=== PATIENT | female | born 1975 | race Asian ===

== ENCOUNTER 2016-11-08 23:23 | Inpatient (IN) | payer OTHER ==
[~2016-11-08] VITALS: Ht 152.4 cm; Wt 77.6 kg
[2016-11-08] MEDS ORDERED: Lactated Ringer's 1,000 ML IV PRN (23:52)
[2016-11-08] MEDS ORDERED: Oxytocin 30 Units/500 mL LR 30 UNITS in IV Premix 1 EACH IV PRN (23:55)
[2016-11-08] MEDS ORDERED: Oxytocin 10 Unit/mL Inj IM PRN (23:55)
[2016-11-08] MEDS ORDERED: Methylergonovine 0.2 mg/mL Inj IM PRN (23:55)
[2016-11-08] MEDS ORDERED: Hemorrhage Kit, Post Partum XX ONE (23:55)
[2016-11-08] MEDS ORDERED: Sodium Chloride LOK Flush 10 mL Syringe IVFLUSH PRN (23:55)
[2016-11-08] MEDS ORDERED: Carboprost 250 mCg/mL Inj IM PRN (23:55)
[2016-11-09] MEDS ORDERED: Atropine 1 mg/10 mL (Code) Syringe IVPUSH PRN
[2016-11-09] MEDS ORDERED: Lactated Ringer's 500 ML IV ONE
[2016-11-09] MEDS ORDERED: EPHEDrine Sulfate 50 mg/mL Inj IVPUSH PRN
[2016-11-09] MEDS ORDERED: Ondansetron 2 mg/mL 2 mL Inj IVPUSH PRN
[2016-11-09] MEDS ORDERED: fentaNYL 2 mCg/mL-Bupiv 0.125% 100 ML EPIDURAL SCH
--- NOTE | 2016-11-09 00:02 | PCM.HPANE ---
Patient Data Surgeon Admitting Provider:Diana Serrato MD Attending Provider:Diana Serrato MD Primary Care Physician:Vivian Manriquez MD Other Provider:Kd Ayala Anesthesia Reason for Visit Term Labor Ht/WT & BMI Body Mass Index Allergies Coded Allergies: No Known Allergies (Unverified , 11/09/16) Past Anesthesia History Anesthesia History: Denies:: Abnormal Airway, Anesthesia Reactions, Difficult Intubation, Fam Anesthesia Reaction, Fam Malignant Hypertherm, Malignant Hyperthermia Medications Active Scripts Ascorbate Calcium (Vitamin C)500 Mg [id number] Mg PO DAILY #90 TABLET Prov:LaureanoKellee L DO 11/10/16 Ferrous Sulfate 325 Mg [id number] Mg PO DAILY #90 TABLET Prov:Kellee Tinsley DO 11/10/16 Docusate Sodium (Colace)100 Mg [id number] Mg PO BID PRN For Constipation #60 CAPSULE Prov:Kellee Tinsley DO 11/10/16 Ibuprofen 800 Mg [id number] Mg PO TID PRN For Pain #60 TABLET Prov:Mercedes Tinsleyssmikki Duran DO 11/10/16 History History of ENT Problems?: No HEENT History: Denies:: Abnormal Airway Cataracts Difficult Intubation Dysphagia Glaucoma Hearing Problem Sinus Problem TMJ Denture Type: None Teeth Condition: Within Normal Limits Hx of Heart Problems?: No Cardiovascular History: Denies:: AICD Abdominal Aortic Aneurism Atrial Fibrillation Cardiac Surgery Chest Pain Congestive Heart Failure Coronary Artery Disease Edema Heart Murmur Hypertension Irregular Heartbeat Pacemaker Peripheral Vascular Rheumatic Fever Thrombophlebitis Valvular Heart Disease Hx of Respiratory Problem?: No Respiratory History: Denies:: Asthma COPD Chest Surgery Cough Dyspnea Emphysema Hemoptysis Oxygen Administration Pneumonia Pulmonary Embolism Tuberculosis Use of C-PAP Machine Use of Inhalers / NEBS Hx Neurologic Problems?: No Hx of GI Problems?: No Hx of Problems?: No HX of Peritoneal Dialysis: No Hx Musculoskeletal Problems?: No Hx of Psycho/Social Problems?: No Hx Surgeries?: Yes Hx Any Other Health Problems?: No Hx Diabetes: No Hx Alcohol Use: NoHx Substance Use: NoHave You Smoked inLast 12 mo: No Stop/Bang Treated for Sleep Apnea?: No Do You Have a CPAP Machine?: No S-Snoring: Do You Snore Loudly: No T-Tired: feel tired, fatigued: No O-Obsered: Observed not breath: No P-Blood Pressure: treated: No B- Body Mass Index > 35 kg/m2: No A- Age over 50: No N- Neck Large Circumference: No G- Gender Male: No MAURA Risk Assessment: Low Risk, <3 Yes MAURA Category 1: Yes Risk Assessment Category Category 1A: Patient has history of documented sleep apnea, and HAS NOT received any narcotic, sedative or anesthesia administration during this stay. Category 1B: Patient has history of documented sleep apnea, and HAS received any narcotic , sedative or anesthesia administration during this stay Category 2: Patient has SUSPECTED Obstructive Sleep Apnea, and HAS received any narcotic , sedative or anesthesia administration during this stay. Category 3: Patient has SUSPECTED Obstructive Sleep Apnea and HAS NOT received narcotic, sedative or anesthesia administration during this stay. Category 4: Outpatient in Procedural Areas with known sleep apnea or who screen positive for High Risk via the STOP/BANG questionnaire. Exam Exam General Appearance: Alert, Oriented X3, Cooperative, Severe Distress HEENT/AIRWAY: MP 2 Lungs: Clear to Auscultation Heart: Exam Unremarkable Plan Impression Patient chart reviewed, patient interviewed and anesthestic plan with risks, benefits, and alternatives discussed, and informed consent obtained. NPO per Anesth. Guidelines: Yes ASA Physical Status: ASA2 Mod Systemic Disease Anesthetic Plan: SAB, Epidural Bene/Risks/Altern/Consents: Yes HP Complete Prior to Induction: Yes Other 8 cm will do combined Suleman Cooper MD Nov 09, 2016 00:02
[2016-11-09 00:30] LABS: Mean Corpuscular Hemoglobin 25.4 pg (27.0-35.0)
[2016-11-09] MEDS: Sodium Chloride LOK Flush 10 mL Syringe IVFLUSH SCH ×3 (00:30→16:30)
[2016-11-09] MEDS ORDERED: fentaNYL-PF 50 mCg/mL 2 mL Inj ONE (00:32)
[2016-11-09] MEDS: Lactated Ringer's 1,000 ML IV SCH ×6 (00:33→18:24)
--- NOTE | 2016-11-09 01:12 | PCM.ANEP1 ---
Post Anesthesia Phase 1 PACU Phase 1 Assessment Anesthetic Administered: SAB, Epidural Level of Alertness: Awake, talking JOHNSON's with Equal Strength: No Pain: Yes Nausea or Vomiting: No Cardiovascular Function and Hy: No Lungs: Normal Air Movement Dermatome Level: T10 (Umbilicus) Complications: No Follow up Care: No Patient Instructions Provided: Yes Suleman Cooper MD Nov 09, 2016 01:11
--- NOTE | 2016-11-09 01:28 | HP ---
[address] [address] HISTORY AND PHYSICAL PATIENT: RUDOLPH FARRELL : 1975 MR#: [id number] ADMIT: 11/08/2016 JOB ID: [id number] CHIEF COMPLAINT: Contractions. HISTORY OF PRESENT ILLNESS: This is a 40-year-old G3, P2-0-0-2 female who is presenting at 38 plus 6 weeks gestational age with EDC of November 17, 2016, complaining of regular uterine contractions. She does desire a trial of labor after section. Her is complicated by history of x1 in her last due to arrest of dilation and occiput posterior positioning with chorioamnionitis and nuchal cord after 3-1/2 hours of pushing. She had a section of a 7 pound child. Before this, with her first , she had a vaginal delivery of an 8 pound 9 ounce infant. 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 Additionally, she was advanced maternal age at age 40 and rubella nonimmune with an ASCUS Pap smear. She transferred care from [place] early in . laboratory data shows a blood type of A positive, antibody screen negative, rubella nonimmune, varicella immune, hep B surface antigen negative, RPR nonreactive, HIV negative, and ASCUS Pap smear. She is also GBS negative. She presented in the late hours of November 08 complaining of regular uterine contractions. She was found to be 5 cm dilated and 90% effaced, at which point in time she was admitted. PAST MEDICAL HISTORY: None. PAST SURGICAL HISTORY: section x1. OBSTETRICAL HISTORY: As noted above. SOCIAL HISTORY: No tobacco, alcohol, or drug use. FAMILY HISTORY: Noncontributory. MEDICATIONS: Include vitamins. ALLERGIES: She has no known drug allergies. OBJECTIVE: At the time of admission her blood pressure is 110/73, heart rate of 98, blood pressure is 124/69. In general, she is awake, alert, oriented. She is very uncomfortable with contractions. An epidural is requested and is getting placed by anesthesia at this time. EFW is 7.5# Maternal monitoring shows 130s baseline, moderate variability, with some variable decelerations. She was having accelerations prior to epidural placement within the last hour. she is tiki every 1-3 minutes. ASSESSMENT: This is a 40-year-old, G3, P2-0-0-2 female presenting at 38 plus 6 weeks gestation with estimated date of confinement of November 17, 2016, in active labor. Her is complicated by history of section x1 and she is desiring a trial of labor after section. Consents have been previously signed in our clinic. Additionally, she is complicated by resolved marginal previa, advanced maternal age, rubella nonimmune status and ASCUS Pap smear in this , as well as questionable remote history of herpes simplex virus. The patient is progressing quickly at this point in time, will anticipate a spontaneous vaginal delivery, successful vaginal after section. Blood type is Rh positive. She is rubella nonimmune and will need a vaccination . She is GBS negative. MTDD
[2016-11-09] MEDS ORDERED: Measles-Mumps-Rubella Vaccine 0.5 mL Inj SUBQ ONE (02:25)
[2016-11-09] MEDS ORDERED: Hemorrhage Kit, Post Partum XX ONE (02:25)
[2016-11-09] MEDS ORDERED: Oxytocin 30 Units/500 mL LR 30 UNITS in IV Premix 1 EACH IV PRN (02:25)
[2016-11-09] MEDS ORDERED: Witch Hazel-Glycerin Pads TOPICAL PRN (02:25)
[2016-11-09] MEDS ORDERED: Benzocaine (Dermoplast) 20% 60 Gm Spray TOPICAL PRN (02:25)
[2016-11-09] MEDS ORDERED: Oxytocin 10 Unit/mL Inj IM PRN (02:25)
[2016-11-09] MEDS ORDERED: LANOlin HPA 7 Gm Ointment TOPICAL PRN (02:25)
[2016-11-09] MEDS ORDERED: Carboprost 250 mCg/mL Inj IM PRN (02:25)
[2016-11-09] MEDS ORDERED: oxyCODONE-Acetamin 5-325 mg Tablet PO PRN (02:25)
[2016-11-09] MEDS ORDERED: Methylergonovine 0.2 mg/mL Inj IM PRN (02:25)
--- NOTE | 2016-11-09 02:57 | OP ---
[address] [address] OPERATIVE REPORT PATIENT: RUDOLPH FARRELL : 1975 MR#: [id number] ADMIT: 11/08/2016 JOB ID: [id number] DATE OF SURGERY: 11/09/2016 PREOPERATIVE DIAGNOSIS(ES): 1. A 38 plus 6 week intrauterine in active labor, desiring trial of labor after section. 2. History of section x1 in her last due to arrest of descent, chorioamnionitis, nuchal cord and persistent occiput posterior positioning. 3. Rubella nonimmune status. 4. Advanced maternal age. 5. Possible history of herpes simplex virus. 6. Atypical squamous cells of undetermined significance Pap smear. POSTOPERATIVE DIAGNOSIS(ES): 1. A 38 plus 6 week intrauterine in active labor, desiring trial of labor after section. 2. History of section x1 in her last due to arrest of descent, chorioamnionitis, nuchal cord and persistent occiput posterior positioning. 3. Rubella nonimmune status. 4. Advanced maternal age. 5. Possible history of herpes simplex virus. 6. Atypical squamous cells of undetermined significance Pap smear. PROCEDURE PERFORMED: Vaginal after section. SURGEON: Diana Serrato MD. ANESTHESIA: Epidural. ESTIMATED BLOOD LOSS: 500 cc. FLUID REPLACEMENT: Crystalloid in labor. COMPLICATIONS: None apparent. INDICATIONS: This is a 40-year-old, G3, P2-0-0-2 female who presented to Labor and Delivery at 38 plus 6 weeks gestation with EDC of November 17, 2016, complaining of regular uterine contractions. was complicated by history of section x1 in the previous due to failure to descend after three hours of pushing with persistent occiput posterior presentation, chorioamnionitis and nuchal cord. Her prior to that had been successful vaginal delivery of an 8 pound 9 ounce infant. Risks, benefits and alternatives of trial of labor have been discussed with her in our clinic. She elected to proceed. is also complicated by rubella nonimmune status, advanced maternal age, ASCUS Pap smear, marginal placenta previa which was resolved and a questionable history of genital HSV in the remote past. The patient was admitted the evening of November 08 and spinal anesthetic was placed for pain relief. When she presented to Labor and Delivery she was 5 cm dilated. She quickly progressed to complete and spontaneously ruptured on her own with return of clear amniotic fluid. When she was noted to be complete and +1 after her spinal was placed, she then began to push, bringing the 's vertex to the perineum. PROCEDURE: The patient was noted to be complete and pushing, so she was placed in dorsal lithotomy position. Prepped and draped in the usual sterile fashion for a delivery. There was no evidence of any herpetic lesions at the time of delivery. She pushed and the head delivered spontaneously. The anterior shoulder then delivered easily, followed by the posterior shoulder, and remainder of the was then easily delivered. After a 60 second cord clamping delay the cord was clamped and cut, and the was placed on the maternal abdomen, where nursing personnel were in attendance. Cord blood was then obtained. The placenta delivered intact spontaneously and was passed off the table. Pitocin was started immediately after delivery of the infant prior to placental delivery, and her uterus was noted to be firm with Pitocin, however, she would have intermittent periods of uterine bogginess so 0.2 mg of Methergine was given IM to help improve uterine tone. Bimanual exam was then completed and some remaining placental membranes were then removed from the uterus until her uterus was noted to be free of any remaining placental tissue. Examination of the perineum showed a large amount of labial edema. There did not appear to be any expanding hematoma with this. She did have a first-degree laceration which was repaired with 3-0 Vicryl in the usual running fashion. Bimanual massage was then again completed throughout her repair and her uterus was again noted to have intermittent periods of bogginess, so 800 mcg of Cytotec was then placed rectally and good hemostasis was then noted. The patient tolerated this procedure well, recovered in labor and delivery with her . Because of her increased uterine bleeding and intermittent periods of decreased uterine tone, Methergine was ordered orally t.i.d. for 24 hours following delivery. All sponge, needle and instrument counts were correct at the completion of the procedure. FINDINGS: Liveborn male infant born at 01:50 hours, weighing 8 pounds 4 ounces, with Apgars of 8 at one minute, 9 at five minutes, with spontaneous cry and spontaneous movement of all four extremities.
[2016-11-09] MEDS: Ascorbic Acid 500 mg Tablet PO SCH ×2 (09:09→17:37)
[2016-11-10] MEDS ORDERED: ASCO-294 PO (06:35)
[2016-11-10] MEDS ORDERED: IBUP800T28 PO (06:35)
[2016-11-10] MEDS ORDERED: DOCU-41 PO (06:35)
[2016-11-10] MEDS ORDERED: FERR-83 PO (06:35)
[2016-11-10 07:24] LABS: Mean Corpuscular Hemoglobin 25.5 pg (27.0-35.0); Mean Corpuscular Volume 78.4 fL (81-100)
--- NOTE | 2016-11-10 07:41 | PCM.DIOB ---
Kellee Tinsley DO 11/10/16 0647: Obstetrical Disch Instruction Date of Service: Nov 10, 2016 Dates of Hospitalization Date of Hospital Admission Nov 08, 2016 at 23:57 Providers Admitting Physician: Diana Serrato MD Primary Care Physician: Vivian Manriquez MD Attending Physician: Diana Serrato MD Diet Discharge Diet: No restrictions Activity Discharge Activity-General: Pelvic Rest for 6 weeks, Balance rest and activity Dressing and Incisional Care Hygiene: May shower, NO bathtub, hot tub or whirlpool Additional Instructions Discharge Instructions Continue your vitamin. Please take the iron and vitamin c together for your anemia. Iron can give you constipation so you have also been given a prescription for docusate to keep you regular. Be sure to follow up in 6 weeks at [facility]. Pelvic rest for 6 weeks (nothing per vagina including intercourse, tampons) If you have a fever greater than 100.4, please call [facility]. There is always someone cargo operations agent to talk to. If you have an increase in bleeding, call [facility]. If you have a lot of bleeding suddenly, especially if you have symptoms of dizziness & weakness with it, get emergency help. If you start experiencing extreme depression, especially if you feel that you are a danger to yourself or your family, seek emergency help. You have been through a lot -- BE SURE TO TAKE CARE OF YOURSELF. You have been sent home with the following prescriptions: - Colace 100 mg twice a day as needed for constipation. - Ferrous sulfate 325 mg every day. - Vitamin C 500 mg every day. Take with iron. - Ibuprofen 800mg take 1 tab every 8 hours as needed for pain. Take with a meal. [facility] 6 weeks with [facility] [place]. Follow Up Plan Follow-up appointment: Weeks (6) Call your provider for: Fever or Chills, Shortness of breath, Heavy vaginal bleeding, Heavy bleeding, Epigastric pain, Excessive constipation, Vaginal discomfort, Red painful breasts, Other (swelling in one leg or painful swelling in your legs) Latricia Ozuna MD 11/14/16 0848: Obstetrical Disch Instruction Attending Statement I saw and examined patient . I agree with above plan. Kellee Tinsley DO Nov 10, 2016 06:47 Latricia Ozuna MD November 14, 2016 08:48
[2016-11-10] MEDS: Ascorbic Acid 500 mg Tablet PO SCH (08:26)
[2016-11-10 09:00] VITALS: BP 112/67; PULSE 74; RESP 18
[2016-11-10] MEDS ORDERED: Methylergonovine 0.2 mg/mL Inj ONE (15:35)
[2016-11-10] MEDS ORDERED: Carboprost 250 mCg/mL Inj IM ONE (15:35)
--- NOTE | 2016-11-10 15:42 | PCM.DC.OB ---
Obstetrical Discharge Summary Date of Service Nov 10, 2016 Date of hospital admission Nov 08, 2016 at 23:57 Date of Discharge: Nov 10, 2016 Providers Admitting Physician: Diana Serrato MD Primary Care Physician: Vivian Manriquez MD Attending Physician: Diana Serrato MD Diagnosis at Time of Discharge 1. A 40-year-old G3, P2-0-0-2 now P3 female at 38 plus 6 week intrauterine , status post vaginal after section 2. hemorrhage 3. History of section x1 in her last due to arrest of descent, chorioamnionitis, nuchal cord and persistent occiput posterior positioning. 4. Rubella nonimmune status. 5. Advanced maternal age. 6. Possible history of herpes simplex virus. 7. Atypical squamous cells of undetermined significance Pap smear. Problems: Invasive procedures Vaginal after section Date of Procedure: Nov 09, 2016 Brief History and Physical: From the history and physical performed on 11/09/16: This is a 40-year-old G3, P2-0-0-2 female who is presenting at 38 plus 6 weeks gestational age with EDC of November 17, 2016, complaining of regular uterine contractions. She does desire a trial of labor after section. Her is complicated by history of x1 in her last due to arrest of dilation and occiput posterior positioning with chorioamnionitis and nuchal cord after 3-1/2 hours of pushing. She had a section of a 7 pound child. Before this, with her first , she had a vaginal delivery of an 8 pound 9 ounce . 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 Additionally, she was advanced maternal age at age 40 and rubella nonimmune with an ASCUS Pap smear. She transferred care from [place] early in . laboratory data shows a blood type of A positive, antibody screen negative, rubella nonimmune, varicella immune, hep B surface antigen negative, RPR nonreactive, HIV negative, and ASCUS Pap smear. She is also GBS negative. She presented in the late hours of November 08 complaining of regular uterine contractions. She was found to be 5 cm dilated and 90% effaced, at which point in time she was admitted. Hospital Course: 1. A 40-year-old G3, P2-0-0-2 now P3 female at 38 plus 6 week intrauterine , status post vaginal after section -Patient did have labial edema without a hematoma and with a first-degree laceration, which was repaired. Pt had a liveborn male infant born at 01:50 hours on 11/09/16, weighing 8 pounds 4 ounces, with Apgars of 8 at one minute, 9 at five minutes. Patient was without concerns on day of discharge. -Pt was discharged on post day 1. She was eating and drinking without issues. She did not have dysuria and had a bowel movement without issues. She did not have leg pain. She was ambulating independently. She was afebrile and vital signs were stable. On exam, her uterus was firm and abdomen was non- tender. Her lungs were clear to auscultation and heart was a regular rate and rhythm without clicks, gallops, or murmurs. Her legs had trace bilateral edema without tenderness. 2. hemorrhage, resolved. -Pt had intermittent uterine bogginess immediately after delivery and had an estimated blood loss of 500 mL. -She was given 800 mcg of Cytotec rectally, methergine was given IM, and methergine orally t.i.d. for 24 hours following delivery. -Hemoglobin and hematocrit was stable on day of discharge, day 1. Pt' s lochia was a normal amount. 3. History of section x1 in her last due to arrest of descent, chorioamnionitis, nuchal cord and persistent occiput posterior positioning. -Patient had a 4. Rubella nonimmune status. -Patient was given an MMR vaccine 5. Advanced maternal age. 6. Possible history of herpes simplex virus. 7. Atypical squamous cells of undetermined significance Pap smear. -She will need follow up of her abnormal Pap smear post . Ascorbate Calcium (Vitamin C) 500 Mg Tablet 500 MG PO DAILY Prescribed by: JAMIR VÁZQUEZ DO Docusate Sodium (Colace) 100 Mg Capsule 100 MG PO BID PRN PRN For Constipation Prescribed by: JAMIR VÁZQUEZ DO Ferrous Sulfate (Ferrous Sulfate) 325 Mg Tablet 325 MG PO DAILY Prescribed by: JAMIR VÁZQUEZ DO Ibuprofen (Ibuprofen) 800 Mg Tablet 800 MG PO TID PRN PRN For Pain Prescribed by: JAMIR VÁZQUEZ DO Patient instructions Continue your vitamin. Please take the iron and vitamin c together for your anemia. Iron can give you constipation so you have also been given a prescription for docusate to keep you regular. Be sure to follow up in 6 weeks at [facility]. Pelvic rest for 6 weeks (nothing per vagina including intercourse, tampons) If you have a fever greater than 100.4, please call [facility]. There is always someone chief operations officer to talk to. If you have an increase in bleeding, call [facility]. If you have a lot of bleeding suddenly, especially if you have symptoms of dizziness & weakness with it, get emergency help. If you start experiencing extreme depression, especially if you feel that you are a danger to yourself or your family, seek emergency help. You have been through a lot -- BE SURE TO TAKE CARE OF YOURSELF. You have been sent home with the following prescriptions: - Colace 100 mg twice a day as needed for constipation. - Ferrous sulfate 325 mg every day. - Vitamin C 500 mg every day. Take with iron. - Ibuprofen 800mg take 1 tab every 8 hours as needed for pain. Take with a meal. Follow-up in 6 weeks with [facility]. copies to: Vivian Manriquez MD; Diana Serrato MD, Marissa L DO Nov 10, 2016 07:42
== END 2016-11-10 15:36 | disposition home or self-care (01) | DRG 774 ==
LOC: FBCO 23:23 → FBC 23:57
PROVIDERS: ADMIT Obstetrics & Gynecology; ATTEND Obstetrics & Gynecology
PROC: 10E0XZZ Delivery of Products of Conception, External Approach (ICD-10-PCS; principal; 2016-11-09)
PROC: 0HQ9XZZ Repair Perineum Skin, External Approach (ICD-10-PCS; 2016-11-09)
PROC: 3E0234Z Introduction of Serum, Toxoid and Vaccine into Muscle, Percutaneous Approach (ICD-10-PCS; 2016-11-09)
DX: O70.0 First degree perineal laceration during delivery (principal); O72.1 Other immediate postpartum hemorrhage; Z3A.38 38 weeks gestation of pregnancy; Z37.0 Single live birth; Z23 Encounter for immunization